=== PATIENT | male | born 1955 | race Caucasian/White ===

== ENCOUNTER 2023-08-31 19:10 | Inpatient (IN) | payer MEDICARE, SELFPAY ==
[2023-08-31] VITALS (8 sets, daily range): BP systolic 138–149; BP diastolic 75–97; PULSE 88–102; RESP 18–22; TEMP 37.8–38.3; O2SAT 92–96; BMI 37.5
--- NOTE | 2023-08-31 19:40 | RAD_ITS ---
STUDY: X-RAY CHEST REASON FOR EXAM: Male, 68 years old. cough TECHNIQUE: AP portable COMPARISON: None. FINDINGS: Mild bibasilar atelectasis or infiltrate more pronounced on the left.. There is no demonstrated pleural abnormality. Normal size heart. Normal mediastinum and dolores. Normal visualized pulmonary arteries. Normal visualized aortic arch and descending thoracic aorta. Normal visualized thoracic spine. Normal visualized ribs, clavicles, and shoulders. There is no demonstrated abnormality of the visualized soft tissue structures of the upper abdomen. RAD/Chest 1 View (Portable) IMPRESSION: Bibasilar atelectasis or infiltrates slightly worse on the left Electronically Signed: Mo Wolf MD at 19:55 EDT ,
[2023-08-31 21:54] LABS: Hematocrit 33.9 % (40-54); Hemoglobin 9.9 g/dL (13.0-16.5); Mean Corp Hgb Conc 29.2 g/dL (32-36); Mean Corpuscular Hgb 26.5 pg (27.0-32.0); Mean Corpuscular Volume 90.9 fL (80-94); POSITIVE COUNT YES; POSITIVE DIFFERENTIAL YES; POSITIVE MORPHOLOGY YES; Platelet Count 136 K/mm3 (150-450); RBC Distribution Width CV 22.8 % (11.6-14.6); RBC Distribution Width SD 74.5 fl (35.1-43.9); Red Blood Count 3.73 M/mm3 (4.6-6.2); White Blood Count 10.9 K/mm3 (4.4-11.0)
[2023-08-31 21:59] LABS: Differential Indicated MANUAL DIFF
[2023-08-31] MEDS: Acetaminophen 500 MG Tablet 1000 MG PO (22:10)
[2023-08-31] MEDS: 0.9% Normal Saline (1000mL) 1,000 ML 999 ML IV (22:10)
[2023-08-31 22:12] LABS: Anion Gap 7 (5-15); BUN 24 mg/dL (7-18); BUN/Creat Ratio 20.3 RATIO (10-20); Calcium,Total 9.1 mg/dL (8.5-10.1); Chloride 102 mmol/L (98-107); Creatinine, Serum 1.18 mg/dL (0.70-1.30); EST Glomerular Filtration Rate 65 mL/min (>60); Est Glom Filt Rate - Afr Amer 78 mL/min (>60); Estimated Creatinine Clearance 75.13 ml/min; Glucose 107 mg/dL (74-106); Potassium 3.7 mmol/L (3.5-5.1); Sodium Level 140 mmol/L (136-145)
[2023-08-31 22:21] LABS: Troponin-I HS 12 pg/mL (3.0-78.0)
--- NOTE | 2023-08-31 22:23 | CT_ITS ---
STUDY: CT ABDOMEN AND PELVIS WITH CONTRAST REASON FOR EXAM: Male, 68 years old. Umbilical hernia RADIATION DOSAGE (If Supplied By Facility): CTDIvol = ( 18.73 ) mGy, DLP = ( 1280.36 ) mGycm TECHNIQUE: Transaxial images were obtained from the dome of the diaphragm to the symphysis pubis without oral contrast. IV 100mL Isovue-300 was administered. Sagittal and coronal images were reconstructed. Individualized dose optimization techniques were used for this CT. COMPARISON: None. FINDINGS: There are chronic interstitial fibrotic changes of the lung bases. There are coronary artery calcifications. There is hepatomegaly with diffuse hepatic enlargement. Normal gallbladder and extrahepatic biliary system. There is moderate splenomegaly. Normal pancreas. Normal bilateral adrenal glands. Normal right kidney. Normal left kidney. Normal visualized stomach. Normal small intestine. Normal colon. The appendix is visualized and appears normal. There is diffuse atherosclerotic calcification of the abdominal aorta, without a demonstrated aneurysm. Normal inferior vena cava. Normal retroperitoneum. There is enlarged prostate gland impressing upon the urinary bladder. There is no free fluid in the abdomen or pelvis. There is 11.3 x 9.4 cm umbilical hernia containing fat. There are diffuse degenerative changes of the visualized lumbar spine. CT/Abdomen/Pelvis W IV Cont ONLY IMPRESSION: Fat-containing umbilical hernia. Hepatosplenomegaly. No biliary dilation Atherosclerosis. No aneurysm. Electronically Signed: Padilla Riley MD at 23:36 EDT ,
--- NOTE | 2023-08-31 22:30 | EDS_ITS ---
HPI History of Present Illness Chief Complaint: Shortness of Breath Narrative Narrative: 68-year-old male presenting with fever, chills, body aches. Family reports he had a fever of 102.5 ?F since Thursday. Patient is not coughing. He does have history of COPD and does use aerosols at home. He is wheezing but family feels he is at baseline. Patient wears 2 L of oxygen via nasal cannula at night. He is having to wear this during the day. Patient recently admitted in May fo r pneumonia at [facility], but due to his pulmonary history and a umbilical hernia which has not been evaluated yet the patient's primary care nurse practitioner wanted him to come to [facility]. He states his traffic signal repairer is Dr. Arthur. Patient is supposed to get established with Dr. Carnes due to umbilical hernia which has been present for years. Patient states that since Thursday it looks like it is more protruding and is erythematous. Per family they went for a walk yesterday and they think that his shirt may have irritated the skin overlying this causing irritation. They describe there is some slight oozing to the right side of the umbilical hernia. Patient has not had increased abdominal pain. He is eating food and drinking fluids. He is making bowel movements. He is passing flatus. PFSH PFSH Allergy/AdvReac Type Severity Reaction Status Date / Time No Known Allergies Allergy Verified 08/31/23 19:11 Social History Smoking Status: Former smoker ROS [facility] ED Constitutional Constitutional ED: Reports chills and fever(s); Denies sweats Eyes Eyes: Denies blurry vision or change in vision ENT ENT ED: Denies ear pain or sore throat Cardiovascular Cardiovascular: Denies chest pain, palpitations or racing heartbeat Respiratory/Chest Respiratory/Chest: Reports dyspnea; Denies cough or sputum Gastrointestinal Gastrointestinal: Reports abdominal pain; Denies constipation, diarrhea, nausea or vomiting Genitourinary Genitourinary ED: Denies dysuria, hematuria or urinary frequency Musculoskeletal Musculoskeletal: Reports myalgias; Denies arthralgias or neck pain Integumentary Reports rash; Denies abscess or Abrasions Neurologic Neurologic: Denies headache(s), paresthesias or weakness Psychiatric Psychiatric: Denies anxiety, depression, suicidal ideation or suicidal thoughts Endocrine Endocrinology: Denies polydipsia or polyuria EXAM Physical Exam Const Vital Signs: 08/31/23 19:11 08/31/23 19:13 08/31/23 20:13 Temperature 100.2 F H 100.2 F H 100.1 F H Temperature Source Temporal Temporal Temporal Pulse Rate 102 H 102 H 101 H Respiratory Rate 20 H 20 H 19 H Respiratory Effort Respiratory Depth Respiratory Pattern Blood Pressure 147/97 H 147/97 H 142/85 H Blood Pressure Mean 113 113 104 Pulse Ox 92 92 92 Oxygen Delivery Method Nasal Cannula Nasal Cannula Nasal Cannula Oxygen Flow Rate (L/min) 2 2 2 08/31/23 21:00 08/31/23 21:37 08/31/23 21:37 Temperature 100.4 F H Temperature Source Oral Pulse Rate 89 Respiratory Rate 22 H 20 H Respiratory Effort Respiratory Depth Respiratory Pattern Blood Pressure 149/87 H Blood Pressure Mean 107 Pulse Ox 95 95 95 Oxygen Delivery Method Nasal Cannula Nasal Cannula Nasal Cannula Oxygen Flow Rate (L/min) 2 2 2 08/31/23 21:37 08/31/23 22:12 08/31/23 23:06 Temperature 101.0 F H Temperature Source Oral Pulse Rate 93 88 Respiratory Rate 19 H 20 H Respiratory Effort Short of Breath Labored Respiratory Depth Normal Respiratory Pattern Normal Blood Pressure 138/75 H Blood Pressure Mean 96 Pulse Ox 96 Oxygen Delivery Method Nasal Cannula Nasal Cannula Oxygen Flow Rate (L/min) 2 2 08/31/23 23:06 08/31/23 23:00 Temperature Temperature Source Pulse Rate 97 Respiratory Rate 18 Respiratory Effort Respiratory Depth Respiratory Pattern Blood Pressure 144/79 H Blood Pressure Mean 100 Pulse Ox 94 92 Oxygen Delivery Method Nasal Cannula Oxygen Flow Rate (L/min) 2 Positive obese General Appearance ED: NAD; Negative for pallor Nutritional Appearance: obese HEENT Reports moist mucous membranes Eyes PERRL and EOMs intact bilaterally Neck no lymphadenopathy Chest Wall inspection of chest normal Resp Resp Narrative: Tachypneic Auscultation: wheezes throughout Cardio Rate: tachycardic GI GI Narrative: Nonreducible umbilical hernia with overlying erythema. There is weeping to the right sided umbilical hernia. There is increased warmth to the umbilical herni a. Neuro oriented x3 and CN's II-XII intact bilaterally Sensorium / Orientation: alert Psych mental status grossly normal Skin General Skin Exam: Negative for jaundice or pallor MDM MDM MDM Narrative Medical decision making narrative: Patient presenting with fever, chills, body aches. Patient does have COPD although he is not complaining of any respiratory complaints or new. He is wheezing but family states he is always wheezing and he is fairly stable in this regard as the patient's daughter is an EMS provider. Patient was given breathing treatments and Solu-Medrol. Differential includes pneumonia, COVID, influenza, RSV, dehydration, COPD exacerbation, anemia, electrolyte abnormalities. Patient also has erythema noted as well as warmth to the umbilical hernia which she has had for years although family is concerned that its become infected after walking yesterday outside and he is sweaty shirt irritating it and there is some exudate on the right side of this. The hernia is not reducible. Differential therefore includes cellulitis, incarcerated umbilical hernia, strangulated helical hernia. CBC will be obtained to assess white blood cell count, hemoglobin, platelets. BMP to assess renal function, electrolytes, glucose. CBC shows no white blood cell count of 10.9. Hemoglobin 9.9. Platelets 136 and therefore low. Renal function electrolytes unremarkable. This is the patient's first lab work in our system and not have any comparison. Chest x-ray on my interpretation shows bilateral atelectasis changes. Radiologist services as atelectasis versus infiltrates. CT of the abdomen pelvis was obtained due to the patient's hernia and abdominal pain and this shows no acute intra-abdominal process. There is a fat-containing umbilical hernia. I do believe that this represents cellulitic change on the patient's hernia. In addition to this the patient is wearing oxygen 24 hours a day now and previously was only needing it for the evenings. Given this we will admit the patient to the hospital. Patient will be covered with vancomycin and Zosyn after speaking with the hospitalist. Impression: 1. Cellulitis 2. Umbilical hernia 3. Febrile illness 4. COPD exacerbation Lab Data Attestation: I reviewed the patient's lab results. Labs: Laboratory Results - last 24 hr 08/31/23 21:31 WBC 10.9 RBC 3.73 L Hgb 9.9 L Hct 33.9 L MCV 90.9 MCH 26.5 L MCHC 29.2 L RDW Std Deviation 74.5 H RDW Coeff of Charlee 22.8 H Plt Count 136 L MPV TNP Neut % (Auto) Not Reportable Absolute Neuts (auto) 9.3 H Absolute Lymphs (auto) 1.19 Total Counted 100 Neutrophils % (Manual) 79 H Band Neutrophils % 6 H Lymphocytes % (Manual) 11 L Monocytes % (Manual) 3 Eosinophils % (Manual) 1 Diff Path Review May foll Platelet Estimate SLT DEC Hypochromasia RARE Anisocytosis 1+ Sodium 140 Potassium 3.7 Chloride 102 Carbon Dioxide 31.0 Anion Gap 7 BUN 24 H Creatinine 1.18 Estim Creat Clear Calc 75.13 Est GFR (MDRD) Af Amer 78 Est GFR (MDRD) Non-Af 65 BUN/Creatinine Ratio 20.3 H Glucose 107 H Calcium 9.1 Troponin I High Sens 12 Radiography Diagnostic Testing: Clinical Impression(s) from Imaging Studies Chest X-Ray 08/31/23 19:40 IMPRESSION: Bibasilar atelectasis or infiltrates slightly worse on the left Electronically Signed: Mo Wolf MD at 19:55 EDT , Abdomen/Pelvis CT 08/31/23 22:23 IMPRESSION: Fat-containing umbilical hernia. Hepatosplenomegaly. No biliary dilation Atherosclerosis. No aneurysm. Electronically Signed: Padilla Riley MD at 23:36 EDT , Discharge Plan Triage Chief Complaint: Shortness of Breath ED Provider: Solomon Hull Dx/Rx/DC Orders Primary Care Provider: Bernadine Crowe NP Referrals: Bernadine Crowe NP, [employer] [Primary Care Provider] -
[2023-08-31 22:33] LABS: Eosinophil 1 % (0-5); Lymphocyte 11 % (19-41); Monocyte 3 % (0-10); Neutrophil-Band 6 % (0-5); Neutrophil-Segmented 79 % (47-70); Total Cells Counted 100 (MANUAL DIFF)
[2023-08-31 22:34] LABS: Anisocytosis 1+
[2023-08-31 22:35] LABS: Hypochromasia RARE
[2023-08-31 22:36] LABS: Platelet Estimate SLT DEC (ADEQ)
[2023-08-31 22:37] LABS: Absolute Lymphocyte Count 1.19 X10^3/uL (0.83-4.51); Absolute Neutrophil Count 9.3 X10^3/uL (2.0-7.7)
[2023-08-31] MEDS: MethylPREDNISolone 125 MG/2 ML Vial IV (22:56)
[2023-08-31] MEDS: Albuterol 2.5 MG/3 ML VIAL.NEB. INHALATION (23:05)
[2023-08-31] MEDS: Ipratropium/Albuterol Sulfate 3 ML AMPUL.NEB INHALATION (23:05)
--- NOTE | 2023-08-31 23:54 | PCM.HP.STD ---
HPI - General General Date of Admission: 08/31/23 Date of Service: 08/31/23 Chief Complaint: Shortness of breath and skin infection HPI Narrative RICK SANDERS, is a 68 M who presents [facility] Allergy/AdvReac Type Severity Reaction Status Date / Time No Known Allergies Allergy Verified 08/31/23 19:11 Social History Smoking Status: Former smoker Vital Signs Vital Signs Vital Signs: 08/31/23 19:11 08/31/23 19:13 08/31/23 20:13 Temperature 100.2 F H 100.2 F H 100.1 F H Temperature Source Temporal Temporal Temporal Pulse Rate 102 H 102 H 101 H Respiratory Rate 20 H 20 H 19 H Respiratory Effort Respiratory Depth Respiratory Pattern Blood Pressure 147/97 H 147/97 H 142/85 H Blood Pressure Mean 113 113 104 Pulse Ox 92 92 92 Oxygen Delivery Method Nasal Cannula Nasal Cannula Nasal Cannula Oxygen Flow Rate (L/min) 2 2 2 08/31/23 21:00 08/31/23 21:37 08/31/23 21:37 Temperature 100.4 F H Temperature Source Oral Pulse Rate 89 Respiratory Rate 22 H 20 H Respiratory Effort Respiratory Depth Respiratory Pattern Blood Pressure 149/87 H Blood Pressure Mean 107 Pulse Ox 95 95 95 Oxygen Delivery Method Nasal Cannula Nasal Cannula Nasal Cannula Oxygen Flow Rate (L/min) 2 2 2 08/31/23 21:37 08/31/23 22:12 08/31/23 23:06 Temperature 101.0 F H Temperature Source Oral Pulse Rate 93 88 Respiratory Rate 19 H 20 H Respiratory Effort Short of Breath Labored Respiratory Depth Normal Respiratory Pattern Normal Blood Pressure 138/75 H Blood Pressure Mean 96 Pulse Ox 96 Oxygen Delivery Method Nasal Cannula Nasal Cannula Oxygen Flow Rate (L/min) 2 2 08/31/23 23:06 08/31/23 23:00 Temperature Temperature Source Pulse Rate 97 Respiratory Rate 18 Respiratory Effort Respiratory Depth Respiratory Pattern Blood Pressure 144/79 H Blood Pressure Mean 100 Pulse Ox 94 92 Oxygen Delivery Method Nasal Cannula Oxygen Flow Rate (L/min) 2 Weight Weight: 261 lb 3.2 oz Body Mass Index (BMI) 37.5 Results Lab / Micro Data 08/31/23 21:31 08/31/23 21:31 Labs: Laboratory Results - last 24 hr 08/31/23 21:31: WBC 10.9, RBC 3.73 L, Hgb 9.9 L, Hct 33.9 L, MCV 90.9, MCH 26.5 L, MCHC 29.2 L, RDW Std Deviation 74.5 H, RDW Coeff of Charlee 22.8 H, Plt Count 136 L, MPV TNP, Neut % (Auto) Not Reportable, Absolute Neuts (auto) 9.3 H, Absolute Lymphs (auto) 1.19, Total Counted 100, Neutrophils % (Manual) 79 H, Band Neutrophils % 6 H, Lymphocytes % (Manual) 11 L, Monocytes % (Manual) 3, Eosinophils % (Manual) 1, Diff Path Review September, Platelet Estimate SLT DEC, Hypochromasia RARE, Anisocytosis 1+, Sodium 140, Potassium 3.7, Chloride 102, Carbon Dioxide 31.0, Anion Gap 7, BUN 24 H, Creatinine 1.18, Estim Creat Clear Calc 75.13, Est GFR (MDRD) Af Amer 78, Est GFR (MDRD) Non-Af 65, BUN/Creatinine Ratio 20.3 H, Glucose 107 H, Calcium 9.1, Troponin I High Sens 12 Micro: Microbiology 08/31/23 22:18 Mucosa - Nose SARS-CoV-2, Influenza & RSV (PCR) - Final Imaging Radiology Impression Chest X-Ray 08/31/23 19:40 IMPRESSION: Bibasilar atelectasis or infiltrates slightly worse on the left Electronically Signed: Mo Wolf MD at 19:55 EDT , Abdomen/Pelvis CT 08/31/23 22:23 IMPRESSION: Fat-containing umbilical hernia. Hepatosplenomegaly. No biliary dilation Atherosclerosis. No aneurysm. Electronically Signed: Padilla Riley MD at 23:36 EDT ,
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
[2023-09-01] VITALS (9 sets, daily range): BP systolic 119–150; BP diastolic 60–83; PULSE 65–103; RESP 16–22; TEMP 36.2–37.4; O2SAT 92–97; BMI 37.5
[2023-09-01] MEDS: Piperacil/Tazobactam 3.375 GM in 0.9% Normal Saline (50mL MB+) 50 ML IV ×4 (00:27→20:45)
[2023-09-01] MEDS: Vancomycin HCl 2,000 MG in 0.9% Normal Saline (500mL Bag) 500 ML 250 MG IV (01:41)
--- NOTE | 2023-09-01 01:57 | PCM.RX.CS ---
Consult Antibiotic Management Pharmacy has been consulted to manage selected antibiotic: Vancomycin Type of Intervention Type of Consult: New start Suspected Infection Suspected Infection: Pneumonia Labs Labs: Sodium 140 mmol/L (136-145) 08/31/23 21:31 Potassium 3.7 mmol/L (3.5-5.1) 08/31/23 21:31 Chloride 102 mmol/L (98-107) 08/31/23 21:31 Carbon Dioxide 31.0 mmol/L (21.0-32.0) 08/31/23 21:31 Anion Gap 7 (5-15) 08/31/23 21:31 BUN 24 mg/dL (7-18) H 08/31/23 21:31 Creatinine 1.18 mg/dL (0.70-1.30) 08/31/23 21:31 Est GFR (MDRD) Af Amer 78 mL/min (>60) 08/31/23 21:31 Est GFR (MDRD) Non-Af 65 mL/min (>60) 08/31/23 21:31 BUN/Creatinine Ratio 20.3 RATIO (10-20) H 08/31/23 21:31 Glucose 107 mg/dL (74-106) H 08/31/23 21:31 Microbiology Microbiology: Microbiology 08/31/23 22:18 Mucosa - Nose SARS-CoV-2, Influenza & RSV (PCR) - Final Dosing Weight Weight used for dosin kg Estimated Creatinine Clearance Estimated Creatinine Clearance: 75 Goal Trough Goal Trough: 10-15 mcg/mL Pharmacy Plan for Drug Dosing Pharmacy Plan for Drug Dosing: Pharmacy Service will continue to monitor and adjust dosing as required. Follow-Up Labs Follow-Up Labs: Trough: Vancomycin Date/Time Labs Ordered Labs to be done on [date and time ordered]: 09/02/23 @1300
[2023-09-01] MEDS: Albuterol 2.5 MG/3 ML VIAL.NEB. INHALATION ×2 (06:48→20:47)
[2023-09-01 07:30] LABS: Hematocrit 31.7 % (40-54); Hemoglobin 9.5 g/dL (13.0-16.5); Mean Corpuscular Hgb 26.9 pg (27.0-32.0); Mean Corpuscular Volume 89.8 fL (80-94); POSITIVE COUNT YES; POSITIVE DIFFERENTIAL YES; POSITIVE MORPHOLOGY YES; Platelet Count 134 K/mm3 (150-450); RBC Distribution Width CV 23.1 % (11.6-14.6); RBC Distribution Width SD 73.7 fl (35.1-43.9); Red Blood Count 3.53 M/mm3 (4.6-6.2); White Blood Count 8.7 K/mm3 (4.4-11.0)
[2023-09-01 07:45] LABS: Differential Indicated MANUAL DIFF
[2023-09-01 08:08] LABS: Anion Gap 7 (5-15); BUN 19 mg/dL (7-18); BUN/Creat Ratio 18.1 RATIO (10-20); Calcium,Total 8.7 mg/dL (8.5-10.1); Chloride 105 mmol/L (98-107); Creatinine, Serum 1.05 mg/dL (0.70-1.30); EST Glomerular Filtration Rate 74 mL/min (>60); Est Glom Filt Rate - Afr Amer 90 mL/min (>60); Estimated Creatinine Clearance 84.52 ml/min; Glucose 172 mg/dL (74-106); Potassium 3.6 mmol/L (3.5-5.1); Sodium Level 139 mmol/L (136-145)
[2023-09-01] MEDS: Enoxaparin 40 MG/0.4 ML Syringe SC (09:48)
[2023-09-01 10:29] LABS: Anisocytosis 2+; Lymphocyte 3 % (19-41); Macrocytosis 1+; Microcytosis 1+; Monocyte 2 % (0-10); Myelocyte 3 % (0-0); Neutrophil-Band 10 % (0-5); Neutrophil-Segmented 82 % (47-70); Platelet Estimate ADEQUATE (ADEQ); Total Cells Counted 100 (MANUAL DIFF)
[2023-09-01 10:30] LABS: Absolute Lymphocyte Count 0.26 X10^3/uL (0.83-4.51)
--- NOTE | 2023-09-01 11:00 | CASEMGMT ---
RN CM Face to Face with patient for initial transition planning/care coordination assessment. RN CM introduced self and role at [facility]. Patient lying in bed, alert and oriented, at bedside. Patient willing to participate in assessment and is able to answer all questions appropriately. Care providers, pharmacy, and demographics verified. PCP: Sebastien [facility] Specialists: Trice, surgeon; Jesse, colors custodian Preferred Pharmacy: [facility] Insurance: [employer] [facility] Prescription Benefit: yes Living Will/HPOA: none LNOK: Living Arrangements: Patient lives with in a single story home with 2 steps and railing to enter the home. Patient is independent at home. Transportation: self, DME/HHC: Patient has shower chair, grab bars, walker, cpap, nebulizer, pusle ox, home oxygen through [facility] and is to receive POC today or tomorrow. No previous HHC or SNF Patient wishes to discharge home, denies need for home health at this time. Patient states he has no further needs or concerns at this time. CM to follow for discharge planning needs that may arise. Disposition Plan: Patient to discharge home with family support and follow-up plans in place. Will monitor for increase in home oxygen. Chelsea ROCKWELL, RN, CM
[2023-09-01 13:04] LABS: Pathologist Review Reviewed
[2023-09-01] MEDS: Vancomycin HCl 1,250 MG in 0.9% Normal Saline (250mL Bag) 250 ML 167 MG IV (13:22)
--- NOTE | 2023-09-01 15:26 | PN_ITS ---
Subjective Subjective Patient seen and examined. He states he feels much better. He denies any cough or shortness of breath, palpitations, dizziness, nausea or vomiting or any other symptoms. Review of systems otherwise negative. Objective Data Objective Data Vital Signs: Vital Signs Temp Pulse Resp BP Pulse Ox O2 Del Method O2 Flow Rate 97.1 F L 65 20 H 150/68 H 97 CPAP 3 09/01/23 14:59 09/01/23 14:59 09/01/23 14:59 09/01/23 14:59 09/01/23 14:59 09/01/23 14:59 09/01/23 14:59 Oxygen Flow Rate (L/min) 3 Oxygen Delivery Method CPAP Weight: 261 lb 11.019 oz Body Mass Index (BMI) 37.5 Intake & Output: Intake and Output for Last 24 Hours 08/30/23 08/31/23 09/01/23 23:59 23:59 23:59 Intake Total 1640 / 1640 Output Total 1200 / 1200 Balance 440 / 440 Lab / Micro Data 09/01/23 06:30 09/01/23 06:30 Labs: Laboratory Results - last 24 hr 08/31/23 21:31: WBC 10.9, RBC 3.73 L, Hgb 9.9 L, Hct 33.9 L, MCV 90.9, MCH 26.5 L, MCHC 29.2 L, RDW Std Deviation 74.5 H, RDW Coeff of Charlee 22.8 H, Plt Count 136 L, MPV TNP, Neut % (Auto) Not Reportable, Absolute Neuts (auto) 9.3 H, Absolute Lymphs (auto) 1.19, Total Counted 100, Neutrophils % (Manual) 79 H, Band Neutrophils % 6 H, Lymphocytes % (Manual) 11 L, Monocytes % (Manual) 3, Eosinophils % (Manual) 1, Diff Path Review Reviewed, Platelet Estimate SLT DEC, Hypochromasia RARE, Anisocytosis 1+, Sodium 140, Potassium 3.7, Chloride 102, Carbon Dioxide 31.0, Anion Gap 7, BUN 24 H, Creatinine 1.18, Estim Creat Clear Calc 75.13, Est GFR (MDRD) Af Amer 78, Est GFR (MDRD) Non-Af 65, BUN/Creatinine Ratio 20.3 H, Glucose 107 H, Calcium 9.1, Troponin I High Sens 12 09/01/23 06:30: WBC 8.7, RBC 3.53 L, Hgb 9.5 L, Hct 31.7 L, MCV 89.8, MCH 26.9 L , MCHC 30.0 L, RDW Std Deviation 73.7 H, RDW Coeff of Charlee 23.1 H, Plt Count 134 L, Neut % (Auto) Not Reportable, Absolute Neuts (auto) 8.0 H, Absolute Lymphs (auto) 0.26 L, Total Counted 100, Neutrophils % (Manual) 82 H, Band Neutrophils % 10 H, Lymphocytes % (Manual) 3 L, Monocytes % (Manual) 2, Myelocytes % 3 H, Diff Path Review September, Platelet Estimate ADEQUATE, Anisocytosis 2+, Microcytosis 1+, Macrocytosis 1+, Sodium 139, Potassium 3.6, Chloride 105, Carbon Dioxide 27.0, Anion Gap 7, BUN 19 H, Creatinine 1.05, Estim Creat Clear Calc 84.52, Est GFR (MDRD) Af Amer 90, Est GFR (MDRD) Non-Af 74, BUN/Creatinine Ratio 18.1, Glucose 172 H, Calcium 8.7 Micro: Microbiology 08/31/23 22:18 Mucosa - Nose SARS-CoV-2, Influenza & RSV (PCR) - Final Radiography Diagnostic Testing: Radiology Impression Chest X-Ray 08/31/23 19:40 IMPRESSION: Bibasilar atelectasis or infiltrates slightly worse on the left Electronically Signed: Mo Wolf MD at 19:55 EDT , Abdomen/Pelvis CT 08/31/23 22:23 IMPRESSION: Fat-containing umbilical hernia. Hepatosplenomegaly. No biliary dilation Atherosclerosis. No aneurysm. Electronically Signed: Padilla Riley MD at 23:36 EDT , Physical Exam Const alert, oriented x3, no apparent distress and well nourished General Appearance: cooperative and well developed HEENT normocephalic, head/scalp atraumatic and moist oral mucous membranes Eyes PERRL and EOMs intact bilaterally Neck no lymphadenopathy and supple Lymph Lymphatic: no lymphadenopathy noted and no lymphedema noted Resp Resp Narrative: diminished breath sounds bibasally, no wheezes or crackles. On 3L of oxygen. Cardio regular rate, regular rhythm, S1 normal heart sound, S2 normal heart sound and no murmurs GI normal to inspection, nondistended, normoactive bowel sounds, soft to palpation, non-tender and non-distended GI Narrative: umbilical hernia, with erythema and differential warmth on skin over umbilical hernia Extremity General Extremity: no tenderness to palpation of joints or extremities Skin General Skin Exam: no breakdown Neuro CN's II-XII intact bilaterally, no focal motor deficits, no sensory deficits noted and deep tendon reflexes 2+ bilaterally Motor Exam: strength 5/5 throughout and general weakness Psych thought process normal and cooperative Appearance: appropriate Assessment & Plan Assessment/Plan (1) Cellulitis of abdominal wall: (2) Hospital-acquired pneumonia: PLAN: Plan #Hospital acquired pneumonia * was recently in hospital * on IV vancomycin and zosyn * breathing treatment with bronchodilators * titrate oxygen to maintain sats >90% * * #Umbilical hernia with associated cellulitis of hte overlying skin * on IV vancomycin and zosyn. * to follow up with gen surg on outpatient basis once the cellulitis has resolved. * #Thrombocytopenia: platelets are 134. Platelets are 136 on admission. Will monitor closely and if it continues to trend downwards, will DC Lovenox. DVT prophylaxis: lovenox Charges/Coding Visit Charges Inpatient E&M: 95452 Subs Hosp L2
[2023-09-01] MEDS: Gabapentin 600 MG Tablet PO ×2 (16:49→20:39)
[2023-09-01] MEDS: hydroCHLOROthiazide 25 MG Tablet PO (16:50)
[2023-09-01] MEDS: buPROPion (SR) 150 MG Tablet.SA PO (16:51)
[2023-09-01] MEDS: Lisinopril 20 MG Tablet PO (16:52)
[2023-09-01] MEDS: Diclofenac 75 MG Tablet PO (18:56)
[2023-09-01] MEDS: Atorvastatin Calcium 10 MG Tablet PO (20:40)
[2023-09-01] MEDS: Tamsulosin HCl 0.4 MG Capsule PO (20:40)
[2023-09-01] MEDS: Loratadine 10 MG Tablet PO (20:40)
[2023-09-01] MEDS: Sertraline 100 MG Tablet PO (20:41)
[2023-09-01] MEDS: clonazePAM 0.5 MG Tablet PO (20:44)
[2023-09-01] MEDS: Budesonide Respules 0.5 MG/2 ML AMPUL.NEB. INHALATION (20:47)
[2023-09-02] MEDS: Vancomycin HCl 1,250 MG in 0.9% Normal Saline (250mL Bag) 250 ML 167 MG IV (02:05)
[2023-09-02 02:10] VITALS: BP 133/62; PULSE 62; RESP 18; TEMP 36.4; O2SAT 100
[2023-09-02] MEDS: Piperacil/Tazobactam 3.375 GM in 0.9% Normal Saline (50mL MB+) 50 ML IV (05:37)
[2023-09-02 07:30] VITALS: PULSE 78; RESP 17; O2SAT 93
[2023-09-02] MEDS: Budesonide Respules 0.5 MG/2 ML AMPUL.NEB. INHALATION (07:30)
[2023-09-02] MEDS: Albuterol 2.5 MG/3 ML VIAL.NEB. INHALATION ×2 (07:30→13:33)
[2023-09-02] MEDS: Tamsulosin HCl 0.4 MG Capsule PO (08:06)
[2023-09-02] MEDS: Diclofenac 75 MG Tablet PO (08:06)
[2023-09-02] MEDS: Allopurinol 100 MG Tablet PO (08:07)
[2023-09-02] MEDS: buPROPion (SR) 150 MG Tablet.SA PO (08:07)
[2023-09-02] MEDS: Montelukast 10 MG Tablet PO (08:07)
[2023-09-02] MEDS: Lisinopril 20 MG Tablet PO (08:07)
[2023-09-02] MEDS: Enoxaparin 40 MG/0.4 ML Syringe SC (08:08)
[2023-09-02] MEDS: Pantoprazole Sodium 20 MG Tablet PO (08:08)
[2023-09-02] MEDS: hydroCHLOROthiazide 25 MG Tablet PO (08:08)
[2023-09-02] MEDS: Famotidine 20 MG Tablet PO (08:08)
[2023-09-02 08:10] VITALS: BP 121/69; PULSE 61; RESP 16; TEMP 36.6; O2SAT 96
[2023-09-02] MEDS: Gabapentin 600 MG Tablet PO ×2 (08:12→14:47)
[2023-09-02 08:49] LABS: Hematocrit 31.1 % (40-54); Hemoglobin 9.2 g/dL (13.0-16.5); Mean Corp Hgb Conc 29.6 g/dL (32-36); Mean Corpuscular Hgb 26.9 pg (27.0-32.0); Mean Corpuscular Volume 90.9 fL (80-94); POSITIVE COUNT YES; POSITIVE DIFFERENTIAL YES; POSITIVE MORPHOLOGY YES; Platelet Count 140 K/mm3 (150-450); RBC Distribution Width CV 23.1 % (11.6-14.6); RBC Distribution Width SD 74.7 fl (35.1-43.9); Red Blood Count 3.42 M/mm3 (4.6-6.2); White Blood Count 7.4 K/mm3 (4.4-11.0)
[2023-09-02 08:52] LABS: Differential Indicated MANUAL DIFF
[2023-09-02 09:31] LABS: Eosinophil 1 % (0-5); Lymphocyte 19 % (19-41); Metamyelocyte 3 % (0-1); Monocyte 8 % (0-10); Myelocyte 3 % (0-0); Neutrophil-Band 3 % (0-5); Neutrophil-Segmented 63 % (47-70); Total Cells Counted 100 (MANUAL DIFF)
[2023-09-02 09:32] LABS: Anisocytosis 1+; Hypochromasia 2+; Ovalocyte 1+; Platelet Estimate ADEQUATE (ADEQ)
[2023-09-02 09:33] LABS: Absolute Neutrophil Count 4.9 X10^3/uL (2.0-7.7)
[2023-09-02 09:35] LABS: Anion Gap 5 (5-15); BUN 22 mg/dL (7-18); BUN/Creat Ratio 17.7 RATIO (10-20); Calcium,Total 8.7 mg/dL (8.5-10.1); Chloride 108 mmol/L (98-107); Creatinine, Serum 1.24 mg/dL (0.70-1.30); EST Glomerular Filtration Rate 61 mL/min (>60); Est Glom Filt Rate - Afr Amer 74 mL/min (>60); Estimated Creatinine Clearance 71.57 ml/min; Glucose 114 mg/dL (74-106); Potassium 3.4 mmol/L (3.5-5.1); Sodium Level 143 mmol/L (136-145)
--- NOTE | 2023-09-02 12:45 | DS.PCM_ITS ---
Providers Date of Admission: 09/01/23 Date of Discharge: 09/02/23 Primary Care Physician: BALA Wiley Reason For Visit: HOSPITAL-ACQUIRED PNEUMONIA, CELLULITIS ABDOMEN Diagnosis Discharge Diagnosis (1) Cellulitis of abdominal wall: Status: Acute Code(s): L03.311 - Cellulitis of abdominal wall (2) Hospital-acquired pneumonia: Status: Acute Code(s): J18.9 - Pneumonia, unspecified organism; Y95 - Nosocomial condition Plan #Hospital acquired pneumonia * was recently in hospital * on IV vancomycin and zosyn * breathing treatment with bronchodilators * titrate oxygen to maintain sats >90% * * #Umbilical hernia with associated cellulitis of hte overlying skin * on IV vancomycin and zosyn. * to follow up with gen surg on outpatient basis once the cellulitis has resolved. * #Thrombocytopenia: platelets are 134. Platelets are 136 on admission. Will monitor closely and if it continues to trend downwards, will DC Lovenox. DVT prophylaxis: lovenox Medications at Discharge Home Medications albuterol sulfate 90 mcg/actuation aerosol inhaler 1 - 2 puff inhalation Q4H PRN PRN shortness of breath or wheezing 09/01/23 allopurinol 100 mg tablet 100 mg PO DAILY 09/01/23 atorvastatin 10 mg tablet 10 mg PO DAILY 09/01/23 budesonide-formoterol HFA 160 mcg-4.5 mcg/actuation aerosol inhaler 2 puff inhalation BID 09/01/23 bupropion HCl 150 mg tablet,12 hr sustained-release 150 mg PO DAILY 09/01/23 cetirizine 10 mg tablet 10 mg PO QHS 09/01/23 clonazepam 0.5 mg tablet 0.5 mg PO QHS 09/01/23 diclofenac sodium 75 mg tablet,delayed release 75 mg PO BID PAIN 09/01/23 famotidine 20 mg tablet 20 mg PO DAILY 09/01/23 gabapentin 600 mg tablet 600 mg PO 4X/DAY 09/01/23 hydrochlorothiazide 25 mg tablet 25 mg PO DAILY 09/01/23 lisinopril 20 mg tablet 20 mg PO DAILY 09/01/23 montelukast 10 mg tablet 10 mg PO DAILY 09/01/23 omeprazole 20 mg capsule,delayed release 20 mg PO DAILY 09/01/23 sertraline 100 mg tablet 100 mg PO QHS 09/01/23 tamsulosin 0.4 mg capsule 0.4 mg PO BID 09/01/23 doxycycline hyclate 100 mg tablet 100 mg PO BID #14 tabs 09/02/23 Hospital Course Operations None Procedures None Summary of Care Provided Minutes Spent on Discharge: 45 Hospital Course: Patient is a 68-year-old male with a past medical history as outlined was admitted through the ED on 08/31/2023 with a complaint of shortness of breath and redness over the skin of his umbilicus hernia. He had a history of COPD on oxygen 2 L of oxygen at home with CPAP at night and saw Dr. Vásquez. He had had a fever for some days prior to admission in addition to his shortness of breath. He had associated wheezing and was requiring more oxygen than usual. The skin over his umbilicus was also erythematous. He was admitted and managed for pneumonia as well as cellulitis over the umbilical hernia. He said he was post to establish with Dr. Carnes for care for his umbilicus hernia but had not done so yet. Patient's fever improved and he felt better. His shortness of breath also resolved and the redness over his umbilical hernia also improved markedly. Patient felt much better. He was discharged home on 09/02/2023 on p.o. doxycycline 100 mg twice daily for 7 days. He is to follow-up with his primary care doctor within 1 to 2 weeks. He was also referred to Dr. Nunez to follow- up for his umbilical hernia. Patient seen and examined prior to discharge. He felt much better and had no active complaints. Review of systems otherwise negative. Labs and vitals reviewed. Home medication reviewed and reconciled. Physical Exam Const alert, oriented x3, no apparent distress and well nourished General Appearance: cooperative, comfortable, well kempt and well developed Orientation / Consciousness: awake HEENT normocephalic, head/scalp atraumatic, hearing grossly normal bilaterally and moist oral mucous membranes Mouth: oral and palatal mucosa normal Eyes PERRL and EOMs intact bilaterally Neck no lymphadenopathy and supple Lymph Lymphatic: no lymphadenopathy noted and no lymphedema noted Resp Resp Narrative: diminished breath sounds bibasally, no wheezes or crackles. On room air. Effort and Inspection: Negative for tachypneic or respiratory distress Cardio regular rate, regular rhythm, S1 normal heart sound, S2 normal heart sound and no murmurs GI normal to inspection, nondistended, normoactive bowel sounds, soft to palpation, non-tender and non-distended GI Narrative: umbilical hernia, . Erythema and differential warmth over umbilical hernia have improved markedly Extremity normal to inspection, full ROM and normal capillary refill General Extremity: no tenderness to palpation of joints or extremities Skin Skin Narrative: As described above at umbilical hernia General Skin Exam: no breakdown Neuro oriented x3, CN's II-XII intact bilaterally, moves all extremities, no focal motor deficits, no sensory deficits noted and deep tendon reflexes 2+ bilaterally Motor Exam: strength 5/5 throughout and general weakness Psych thought process normal, cooperative and affect normal Appearance: appropriate Weight / BMI Weight Weight: 261 lb 11.019 oz Body Mass Index (BMI) 37.5 ABG / Lab / Microbiology Data 09/02/23 08:31 09/02/23 08:31 Laboratory: Laboratory Results - last 24 hr 08/31/23 21:31: Diff Path Review Reviewed 09/02/23 08:31: WBC 7.4, RBC 3.42 L, Hgb 9.2 L, Hct 31.1 L, MCV 90.9, MCH 26.9 L , MCHC 29.6 L, RDW Std Deviation 74.7 H, RDW Coeff of Charlee 23.1 H, Plt Count 140 L, Neut % (Auto) Not Reportable, Absolute Neuts (auto) 4.9, Absolute Lymphs (auto) 1.40, Total Counted 100, Neutrophils % (Manual) 63, Band Neutrophils % 3, Lymphocytes % (Manual) 19, Monocytes % (Manual) 8, Eosinophils % (Manual) 1, Metamyelocytes % 3 H, Myelocytes % 3 H, Diff Path Review May foll, Platelet Estimate ADEQUATE, Hypochromasia 2+, Anisocytosis 1+, Ovalocytes 1+, Sodium 143, Potassium 3.4 L, Chloride 108 H, Carbon Dioxide 30.0, Anion Gap 5, BUN 22 H, Creatinine 1.24, Estim Creat Clear Calc 71.57, Est GFR (MDRD) Af Amer 74, Est GFR (MDRD) Non-Af 61, BUN/Creatinine Ratio 17.7, Glucose 114 H, Calcium 8.7 Microbiology: Microbiology 08/31/23 22:18 Mucosa - Nose SARS-CoV-2, Influenza & RSV (PCR) - Final D/C Instructions Discharge Diet: Low fat / Low cholesterol Discharge Activity: Return to Normal Activity Weight Bearing Status: Weight bearing as tolerated Call your doctor if you observe: Fever of 101 or Higher, Shortness of breath, Dizziness, Swelling in the ankles and Chest pain Meaningful Use Info Meaningful Use Diagnoses (Choose all that apply): None applicable Discharge Plan Admission Admit Date/Time: 09/01/23 00:46 Primary Reason for Your Visit: hospital acquired pneumonia, cellulitis Attending Provider: Yamileth Galarza Primary Care Provider: Bernadine Crowe NP Consulting Providers: Cb De La Cruz Instructions Patient Instructions: ED Pneumonia (Adult) Discharge Orders/Prescriptions Prescriptions: New doxycycline hyclate 100 mg tablet 100 mg PO BID Qty: 14 0RF Continued albuterol sulfate 90 mcg/actuation HFA aerosol inhaler 1 - 2 puff inhalation Q4H PRN PRN (Reason: shortness of breath or wheezing) bupropion HCl 150 mg tablet sustained-release 12 hr 150 mg PO DAILY gabapentin 600 mg tablet 600 mg PO 4X/DAY sertraline 100 mg tablet 100 mg PO QHS tamsulosin 0.4 mg capsule 0.4 mg PO BID cetirizine 10 mg tablet 10 mg PO QHS atorvastatin 10 mg tablet 10 mg PO DAILY lisinopril 20 mg tablet 20 mg PO DAILY allopurinol 100 mg tablet 100 mg PO DAILY famotidine 20 mg tablet 20 mg PO DAILY omeprazole 20 mg capsule,delayed release(DR/EC) 20 mg PO DAILY montelukast 10 mg tablet 10 mg PO DAILY hydrochlorothiazide 25 mg tablet 25 mg PO DAILY clonazepam 0.5 mg tablet 0.5 mg PO QHS diclofenac sodium 75 mg tablet,delayed release (DR/EC) 75 mg PO BID budesonide-formoterol 160-4.5 mcg/actuation HFA aerosol inhaler 2 puff inhalation BID Referrals / Follow Up: Eugene Carnes MD [Med Staff - Active Staff] - Within 2 Weeks (see to establish care for umbilical hernia) Bernadine Crowe NP, [employer] [Primary Care Provider] - Within 1 Week Disposition Disposition (needs filled in before D/C Order can be placed): Home, Self Care Charges/Coding Visit Charges Inpatient E&M: 70369 Disch Hosp >30min
[2023-09-02 13:03] VITALS: O2SAT 85; O2SAT 89; O2SAT 93
--- NOTE | 2023-09-02 13:19 | CASEMGMT ---
Addendum entered by Chelsea Costa 09/02/23 13:33: SHUN ANSARI updated nurse and charge nurse regarding patient refusing portable oxygen tank at discharge. Original Note: SHUN ANSARI updated that patient will need oxygen at 2 lpm with ambulation. SHUN CM in to updated patient and regarding oxygen needs and to inquire if personal POC was delivered. states that POC had not been delivered. SHUN ANSARI confirmed that DME equipment at home is through [facility]. SHUN ANSARI called [facility] and script from 2021 is for 3.5 lpm continuously, [facility] requesting updated script. RN CM updated patient and that he will need portable tank delivered from [facility] to go home with. Patient states he does not want to wait for portable oxygen to be delivered and refusing portable oxygen tank for discharge. states that patient has less than 10feet to walk from car to the door and they will have home oxygen concentrator available for when patient is at home. SHUN ANSARI confirmed with patient and that they do not want to wait for portable tank at discharge, patient and stating they are refusing oxygen tank for at discharge. Patient denied further needs or concerns. SHUN ANSARI faxed updated script to [facility] for home oxygen and requested [facility] reach out to for portable setup.
[2023-09-02 13:33] VITALS: PULSE 62; RESP 16
[2023-09-02 14:00] VITALS: BP 128/65; PULSE 64; RESP 16; TEMP 36.6; O2SAT 96
--- NOTE | 2023-09-02 14:33 | PHA.DC_ITS ---
Pharmacy [facility] has performed discharge medication reconciliation and counseling for this patient. 1. DOXYCYCLINE 100MG PO BID X 7 DAYS The patient's discharge medication list was reviewed for discrepancies and discrepancies were resolved. The patient was counseled on the following discharge medications and changes in medications for homegoing were reviewed. The Reason for Use, instructions for use, and potential side effects were reviewed for all new medications. The patient's questions regarding all of their medications were answered. The patient was able to verbally demonstrate an understanding of their discharge medications. Medications at Discharge Home Medications albuterol sulfate 90 mcg/actuation aerosol inhaler 1 - 2 puff inhalation Q4H PRN PRN shortness of breath or wheezing 09/01/23 allopurinol 100 mg tablet 100 mg PO DAILY 09/01/23 atorvastatin 10 mg tablet 10 mg PO DAILY 09/01/23 budesonide-formoterol HFA 160 mcg-4.5 mcg/actuation aerosol inhaler 2 puff inhalation BID 09/01/23 bupropion HCl 150 mg tablet,12 hr sustained-release 150 mg PO DAILY 09/01/23 cetirizine 10 mg tablet 10 mg PO QHS 09/01/23 clonazepam 0.5 mg tablet 0.5 mg PO QHS 09/01/23 diclofenac sodium 75 mg tablet,delayed release 75 mg PO BID PAIN 09/01/23 famotidine 20 mg tablet 20 mg PO DAILY 09/01/23 gabapentin 600 mg tablet 600 mg PO 4X/DAY 09/01/23 hydrochlorothiazide 25 mg tablet 25 mg PO DAILY 09/01/23 lisinopril 20 mg tablet 20 mg PO DAILY 09/01/23 montelukast 10 mg tablet 10 mg PO DAILY 09/01/23 omeprazole 20 mg capsule,delayed release 20 mg PO DAILY 09/01/23 sertraline 100 mg tablet 100 mg PO QHS 09/01/23 tamsulosin 0.4 mg capsule 0.4 mg PO BID 09/01/23 doxycycline hyclate 100 mg tablet 100 mg PO BID #14 tabs 09/02/23
[2023-09-02] MEDS: Potassium Chloride Oral Tablet 20 MEQ 40 MEQ PO (14:47)
[2023-09-03 09:38] LABS: Pathologist Review Reviewed
[2023-09-03 09:41] LABS: Pathologist Review Reviewed
== END 2023-09-02 15:08 | disposition home or self-care (01) | DRG 603 ==
LOC: ED 21:55 → PCU 09-01 01:40
PROVIDERS: Admitting Provider Family Medicine; Emergency Provider Student in an Organized Health Care Education/Training Program; PCP Nurse Practitioner Family; Visit Provider Student in an Organized Health Care Education/Training Program
DX: L03.311 Cellulitis of abdominal wall (principal); J44.1 Chronic obstructive pulmonary disease with (acute) exacerbation; Z99.81 Dependence on supplemental oxygen; K42.9 Umbilical hernia without obstruction or gangrene; Y95 Nosocomial condition; Z87.891 Personal history of nicotine dependence; Z79.51 Long term (current) use of inhaled steroids; Z79.899 Other long term (current) drug therapy
CPT/HCPCS: 36415; 71045; 74177; 80048; 84484; 85025; 87631; 94640; 94760; 99284; 99406; Q9967; A4216